=== PATIENT | female | born 1975 | race African-American/Black ===

== ENCOUNTER 2016-12-12 11:01 | Emergency (ER) | payer MEDICAID, OTHER ==
[~2016-12-12] VITALS: Ht 185.4 cm; Wt 125.0 kg
[~2016-12-12 11:01] MED LIST: PREN1TAB52 PO; SERT25TA PO; TRAZ300T2 PO
[2016-12-12] MEDS ORDERED: DIPH25 PO (11:22)
[2016-12-12] MEDS ORDERED: OLAN10TA3 PO (11:22)
[2016-12-12 11:47] LABS: BASOPHILS % (AUTO) 1.6 % (0.0-2.0); EOSINOPHILS % (AUTO) 1.9 % (1.0-6.0); HEMATOCRIT 34.8 % (36-46); HEMOGLOBIN 11.5 g/dL (12.0-16.0); LYMPHOCYTES # (AUTO) 2.2 K/uL (1.0-4.8); LYMPHOCYTES % (AUTO) 30.7 % (22.0-44.0); MEAN CORPUSCULAR HEMOGLOBIN 23.2 pg (26.0-34.0); MEAN CORPUSCULAR VOLUME 70 fL (80-100); MONOCYTES # (AUTO) 0.5 K/uL (0.1-1.0); MONOCYTES % (AUTO) 7.1 % (2.0-9.0); NEUTROPHILS # (AUTO) 4.2 K/uL (1.8-7.7); NEUTROPHILS % (AUTO) 58.7 % (40.0-70.0); PLATELET COUNT (AUTO) 281 K/uL (150-450); RED BLOOD CELL COUNT(AUTO) 4.96 MIL/uL (4.00-5.20); RED CELL DISTRIBUTION WIDTH 15.4 % (11.5-14.5); WHITE BLOOD COUNT (AUTO) 7.2 K/uL (4.5-11.0)
[2016-12-12 11:56] LABS: ANION GAP 9 mmol/L (8-16); CALCIUM, TOTAL 9.1 mg/dL (8.8-10.5); CARBON DIOXIDE 27 mmol/L (22-29); CHLORIDE 106 mmol/L (98-107); CREATININE 0.86 mg/dL (0.60-1.30); GLOMERULAR FILTR. RATE CALC > 60 mL/min (>60); POTASSIUM 4.4 mmol/L (3.5-5.1); SODIUM SERUM 142 mmol/L (136-145); UREA NITROGEN, BLOOD 7 mg/dL (7-18)
[2016-12-12 12:03] LABS: ALANINE AMINOTRANSFERASE 16 U/L (12-78); ALBUMIN 3.5 g/dL (3.4-5.0); ASPARTATE AMINOTRANSFERASE 9 U/L (15-37); BILIRUBIN,TOTAL 0.1 mg/dL (0.1-1.0); TOTAL PROTEIN, SERUM 7.2 g/dL (6.4-8.2)
[2016-12-12 12:08] LABS: RBC MORPHOLOGY COMMENT ABNORMAL RBC MORPH
[2016-12-12 14:35] VITALS: BP 116/65
== END 2016-12-12 15:02 | disposition home or self-care (01) ==
LOC: EMS 11:03
DX: F20.9 Schizophrenia, unspecified (principal); F32.9 Major depressive disorder, single episode, unspecified; J45.909 Unspecified asthma, uncomplicated
CPT/HCPCS: 36415; 80053; 85025; 99284; G0480

== ENCOUNTER 2017-01-01 09:22 | Inpatient (IN) | payer MEDICAID, OTHER ==
[~2017-01-01] VITALS: Ht 188 cm; Wt 100.0 kg
[~2017-01-01 09:22] MED LIST changes: +DIPH25 PO; +OLAN10TA3 PO; -PREN1TAB52 PO; -SERT25TA PO; -TRAZ300T2 PO
[2017-01-01] MEDS ORDERED: DiphenhydrAMINE HCL 50 MG/ML VIAL ONE (09:29)
[2017-01-01] MEDS ORDERED: LORazepam 2 MG/ML VIAL ONE (09:29)
[2017-01-01] MEDS ORDERED: HALOPERIDOL LACTATE 5 MG/ML VIAL ONE (09:29)
[2017-01-01] MEDS ORDERED: HALOPERIDOL LACTATE 5 MG/ML VIAL IM ONE (09:30)
[2017-01-01] MEDS ORDERED: LORazepam 2 MG/ML VIAL IM ONE (09:30)
[2017-01-01] MEDS ORDERED: DiphenhydrAMINE HCL 50 MG/ML VIAL IM ONE (09:30)
[2017-01-01 10:07] LABS: BASOPHILS % (AUTO) 0.8 % (0.0-2.0); EOSINOPHILS % (AUTO) 4.4 % (1.0-6.0); HEMATOCRIT 31.1 % (36-46); LYMPHOCYTES # (AUTO) 2.2 K/uL (1.0-4.8); LYMPHOCYTES % (AUTO) 42.3 % (22.0-44.0); MEAN CORPUSCULAR HEMOGLOBIN 22.5 pg (26.0-34.0); MEAN CORPUSCULAR HGB CONC 32.2 G/dL (31.0-37.0); MEAN CORPUSCULAR VOLUME 70 fL (80-100); MONOCYTES # (AUTO) 0.5 K/uL (0.1-1.0); MONOCYTES % (AUTO) 10.3 % (2.0-9.0); NEUTROPHILS # (AUTO) 2.2 K/uL (1.8-7.7); NEUTROPHILS % (AUTO) 42.2 % (40.0-70.0); PLATELET COUNT (AUTO) 255 K/uL (150-450); RED BLOOD CELL COUNT(AUTO) 4.45 MIL/uL (4.00-5.20); RED CELL DISTRIBUTION WIDTH 15.5 % (11.5-14.5); WHITE BLOOD COUNT (AUTO) 5.3 K/uL (4.5-11.0)
[2017-01-01 10:13] LABS: ANION GAP 11 mmol/L (8-16); CALCIUM, TOTAL 8.6 mg/dL (8.8-10.5); CARBON DIOXIDE 23 mmol/L (22-29); CHLORIDE 107 mmol/L (98-107); CREATININE 0.89 mg/dL (0.60-1.30); GLOMERULAR FILTR. RATE CALC > 60 mL/min (>60); POTASSIUM 3.4 mmol/L (3.5-5.1); SODIUM SERUM 141 mmol/L (136-145); UREA NITROGEN, BLOOD 11 mg/dL (7-18)
[2017-01-01 10:19] LABS: ALANINE AMINOTRANSFERASE 26 U/L (12-78); ALBUMIN 3.6 g/dL (3.4-5.0); ASPARTATE AMINOTRANSFERASE 19 U/L (15-37); BILIRUBIN,TOTAL 0.3 mg/dL (0.1-1.0); TOTAL PROTEIN, SERUM 6.9 g/dL (6.4-8.2)
[2017-01-01 10:27] LABS: RBC MORPHOLOGY COMMENT ABNORMAL RBC MORPH
[2017-01-01] MEDS ORDERED: ZOLPIDEM TARTRATE 10 MG TABLET PO PRN (11:00)
[2017-01-01] MEDS ORDERED: OLANZapine 5 MG RAPDIS TABLET PO PRN (11:00)
[2017-01-01] MEDS ORDERED: PROMETHAZINE HCL 25 MG TABLET PO PRN (12:30)
[2017-01-01] MEDS ORDERED: GuaiFENesin/D-METHORPHAN [SUGAR-FREE] 200-20MG/10 ML SYRUP UDCUP PO PRN (12:30)
[2017-01-01] MEDS ORDERED: MAGNESIUM HYDROXIDE SUSPENSION 30 ML UDCUP PO PRN (12:30)
[2017-01-01] MEDS ORDERED: MAG HYDROX/AL HYDROX/SIMETH ES 30 ML SUSPENSION UDCUP PO PRN (12:30)
[2017-01-01] MEDS ORDERED: LOPERAMIDE HCL 2 MG CAPSULE PO PRN (12:30)
[2017-01-01] MEDS ORDERED: HydrOXYzine PAMOATE 50 MG CAPSULE PO PRN (12:30)
[2017-01-01] MEDS ORDERED: TUBERCULIN, PURIFIED PROTEIN DERIVATIVE 5 TU/0.1 ML SYG ID ONE (12:30)
[2017-01-01 15:05] VITALS: BP 122/72
[2017-01-01] MEDS: THIAMINE HCL 100 MG TABLET PO SCH (16:25)
[2017-01-01] MEDS: OLANZapine 7.5 MG TABLET PO SCH (20:31)
[2017-01-01] MEDS ORDERED: OLANZapine 10 MG TABLET PO SCH (21:00)
[2017-01-02] MEDS: ACETAMINOPHEN 325 MG TABLET PO PRN (06:10)
[2017-01-02] MEDS ORDERED: INFLUENZA VIRUS VACCINE QVS 2017-18 (3YR+)/PF 60 MCG/0.5 ML SYRINGE IM ONE (06:30)
[2017-01-02 08:35] VITALS: BP 144/84
[2017-01-02] MEDS: THIAMINE HCL 100 MG TABLET PO SCH ×2 (09:56→16:40)
[2017-01-02] MEDS: FOLIC ACID 1 MG TABLET PO SCH (09:56)
[2017-01-02] MEDS: MULTIVITAMINS WITH MINERALS, THERAPEUTIC TABLET PO SCH (09:56)
[2017-01-02] MEDS ORDERED: POTASSIUM CHLORIDE 20 MEQ ER TABLET PO ONE (15:45)
[2017-01-02 16:27] VITALS: BP 131/66
[2017-01-02] MEDS: LORazepam 2 MG TABLET PO PRN (16:41)
[2017-01-02] MEDS: OLANZapine 7.5 MG TABLET PO SCH (20:51)
[2017-01-03 06:11] VITALS: BP 144/72
[2017-01-03] MEDS: ACETAMINOPHEN 325 MG TABLET PO PRN (06:31)
[2017-01-03 08:25] VITALS: BP 157/79
[2017-01-03] MEDS: THIAMINE HCL 100 MG TABLET PO SCH ×2 (08:52→16:36)
[2017-01-03] MEDS: NALTREXONE HCL 50 MG TABLET PO SCH (08:52)
[2017-01-03] MEDS: MULTIVITAMINS WITH MINERALS, THERAPEUTIC TABLET PO SCH (08:52)
[2017-01-03] MEDS: FLUoxetine HCL 20 MG CAPSULE PO SCH (08:53)
[2017-01-03] MEDS: FOLIC ACID 1 MG TABLET PO SCH (08:53)
[2017-01-03] MEDS ORDERED: OLAN10TA20 PO (14:50)
[2017-01-03] MEDS ORDERED: FLUO-191 PO (14:50)
[2017-01-03] MEDS ORDERED: NALT50TA PO (14:50)
[2017-01-03] MEDS ORDERED: IBUPROFEN 400 MG TABLET PO PRN (16:15)
[2017-01-03] MEDS: AmLODIPine BESYLATE 5 MG TABLET PO SCH (16:15)
[2017-01-03] MEDS ORDERED: ACETAMINOPHEN 325 MG TABLET PO PRN (16:15)
[2017-01-03 16:37] VITALS: BP 127/74
[2017-01-03] MEDS: LORazepam 2 MG TABLET PO PRN (18:41)
[2017-01-03] MEDS ORDERED: OLANZapine 10 MG TABLET PO SCH (21:00)
[2017-01-03] MEDS ORDERED: AMLO-511 PO (21:06)
[2017-01-04 06:51] VITALS: BP 122/78
[2017-01-04] MEDS ORDERED: FLUO-191 PO (08:18)
[2017-01-04] MEDS ORDERED: FOLI1 PO (08:18)
[2017-01-04] MEDS ORDERED: NALT50TA6 PO (08:18)
[2017-01-04] MEDS ORDERED: OLAN10TA3 PO (08:18)
[2017-01-04] MEDS: AmLODIPine BESYLATE 5 MG TABLET PO SCH (09:18)
[2017-01-04] MEDS: FLUoxetine HCL 20 MG CAPSULE PO SCH (09:18)
[2017-01-04] MEDS: NALTREXONE HCL 50 MG TABLET PO SCH (09:18)
[2017-01-04] MEDS: FOLIC ACID 1 MG TABLET PO SCH (09:18)
[2017-01-04] MEDS: THIAMINE HCL 100 MG TABLET PO SCH (09:18)
[2017-01-04] MEDS: MULTIVITAMINS WITH MINERALS, THERAPEUTIC TABLET PO SCH (09:19)
== END 2017-01-04 10:00 | disposition home or self-care (01) | DRG 750 ==
LOC: EMS 09:23 → B3A 13:57
PROVIDERS: ADMIT Psychiatry & Neurology Psychiatry; ATTEND Psychiatry & Neurology Psychiatry
DX: F20.0 Paranoid schizophrenia (principal); Z91.19 Patient's noncompliance with other medical treatment and regimen; I10 Essential (primary) hypertension; F32.9 Major depressive disorder, single episode, unspecified; D64.9 Anemia, unspecified; Z59.0 Homelessness; F43.10 Post-traumatic stress disorder, unspecified; J45.909 Unspecified asthma, uncomplicated; R10.9 Unspecified abdominal pain; E87.6 Hypokalemia; Z28.21 Immunization not carried out because of patient refusal
CPT/HCPCS: 90471; 96372; 99285; G0480; J1200; J1630; J2060